=== PATIENT | female | born 1990 | race Asian ===

== ENCOUNTER 2023-08-31 11:50 | Emergency (ER) | payer OTHER ==
[~2023-08-31] VITALS: Ht 167.6 cm; Wt 64.4 kg
[2023-08-31] MEDS ORDERED: CEPH-570 PO (13:23)
[2023-08-31 13:45] VITALS: BP 113/60; TEMP 98.2; O2SAT 99
== END 2023-08-31 13:45 | disposition home or self-care (01) ==
LOC: ER 12:03
DX: O99.711 Diseases of the skin and subcutaneous tissue complicating pregnancy, first trimester (principal); M79.602 Pain in left arm; Z3A.12 12 weeks gestation of pregnancy
CPT/HCPCS: 93971-TC